=== PATIENT | female | born 1955 | race Caucasian/White ===

== ENCOUNTER 2020-05-25 06:24 | Day surgery (SDC) | payer MEDICARE, SELFPAY ==
--- NOTE | 2020-05-24 10:08 | HO.ANESPROP2 ---
Documented by User: Melanie Laurent 05/24/20 10:09 HPI - Anesthesia Eval Consult details Narrative: 64yo F for colonoscopy [facility] Past Medical History Medical History High cholesterol Surgical History Surgical History History of salpingo-oophorectomy Hx of colonoscopy Social History Social History Smoking Status: Former smoker Years Smoked: no Smoking Quit Date: 30 years ago Patient Interested in Nicotine Replacement: No Patient Given Instructions on How to Stop Smoking: No Second Hand Smoke Exposure: No Use of substances other than those prescribed or required for medical reasons: No Advance Directives: No Advance Directives Information Provided: No Meds Allergies Allergy/AdvReac Type Severity Reaction Status Date / Time No Known Allergies Allergy Verified 05/24/20 10:09 Home Medications Medication Instructions Recorded Confirmed Type atorvastatin 40 mg PO DAILY 05/21/20 05/21/20 History calcium carbonate-vitamin D3 1 tab PO DAILY 05/21/20 05/21/20 History [Calcium 600 + D(3)] multivitamin 1 tab PO DAILY 05/21/20 05/21/20 History Exam Exam Date and Time: May 24, 2020 1008 Assessment and Plan Assessment Anesthesia Assessment: Chart Reviewed Documented by User: Ami Doshi 05/25/20 07:27 [facility] Past Medical History Medical History High cholesterol Surgical History Surgical History History of salpingo-oophorectomy Hx of colonoscopy Social History Social History Smoking Status: Former smoker Years Smoked: no Smoking Quit Date: 30 years ago Patient Interested in Nicotine Replacement: No Patient Given Instructions on How to Stop Smoking: No Second Hand Smoke Exposure: No Use of substances other than those prescribed or required for medical reasons: No Advance Directives: No Advance Directives Information Provided: No Meds Allergies Allergy/AdvReac Type Severity Reaction Status Date / Time No Known Allergies Allergy Verified 05/24/20 10:09 Home Medications Medication Instructions Recorded Confirmed Type atorvastatin 40 mg PO DAILY 05/21/20 05/21/20 History calcium carbonate-vitamin D3 1 tab PO DAILY 05/21/20 05/21/20 History [Calcium 600 + D(3)] multivitamin 1 tab PO DAILY 05/21/20 05/21/20 History Exam Airway Mallampati Class: II TM Dist: >3cm Neck ROM: Full
[2020-05-25] MEDS: Lactated Ringers 1,000 ML 100 ML IVCONT (06:53)
[2020-05-25 06:57] VITALS: BMI 27.4
[2020-05-25 07:00] VITALS: BP 133/76; PULSE 70; RESP 16; TEMP 36.6; O2SAT 98
--- NOTE | 2020-05-25 07:26 | MHC.SHP ---
Pre-Procedural Eval Section B Chief Complaint: Screening Details of Present Illness: screening see H&P no changes Relevant Family History (Specify if Yes): Yes Relevant Social History: None Present Medications: see Short Stay Collaborative assessment Medical History: No relevant PMH History of Previous Operations: No relevant previous surgery Allergies: Allergies Allergy/AdvReac Type Severity Reaction Status Date / Time No Known Allergies Allergy Verified 05/24/20 10:09 Review of Systems Sugical H&P ROS: Negative: Constitution, Cardiovascular, Respiratory, Neurological, Psychiatric, Hem-Onc, Allergic/Immunologic, Gastrointestinal, Genitourinary, Musculoskeletal, Integumentary, Endocrine and Eyes/Ears/Nose/Throat Exam Surgical H&P Exam: Normal: HEENT, Normal: Heart, Normal: Lungs, Normal: Extremities, Normal: Abdomen, Normal: Skin and Normal: Neurological Plan Diagnosis/Plan: Unchanged Patient has been examined and remains a candidate for the planned procedure
--- NOTE | 2020-05-25 07:58 | PM.OP ---
Brief Operative Note Date of procedure: 05/25/20 Pre-op diagnosis: screening Post-op diagnosis: other (colon polyp) Procedure: colonoscopy Surgeon: Michael Watters Anesthesia: MAC Estimated blood loss (mL): 1 Pathology: other (polyp 65 cm) Condition: stable Disposition: PACU
[2020-05-25 08:00] VITALS: BP 112/73; PULSE 80; RESP 15; TEMP 36.7; O2SAT 96
[2020-05-25 08:15] VITALS: BP 131/57; PULSE 71; RESP 20; TEMP 36.7; O2SAT 97
--- NOTE | 2020-05-25 08:25 | HO.POSTANES ---
Post Anesthesia Evaluation Post Anesthesia Evaluation Vital Signs: Vital Signs Temp Pulse Resp BP Pulse Ox 05/25/20 08:15 98.0 F 71 20 131/57 L 97 05/25/20 08:00 98.0 F 80 15 112/73 96 05/25/20 07:00 97.9 F 70 16 133/76 98 Anesthesia: Monitored Mental Status: Awake Pain Control: Satisfactory Nausea/Vomiting: None Hydration: Adequate Anesthesia-Related Issues: No Anes. Related Issues
--- NOTE | 2020-05-25 08:34 | OP_ITS ---
SURGEON: Michael Watters MD INDICATIONS: Colon cancer screening and family history of colon cancer. PREOPERATIVE DIAGNOSIS: POSTOPERATIVE DIAGNOSIS: PROCEDURE PERFORMED: Colonoscopy to the terminal ileum with biopsy. ESTIMATED BLOOD LOSS: COMPLICATIONS: ANESTHESIA: ASSISTANTS: SPECIMENS: MEDICATIONS: Monitored anesthesia care. DESCRIPTION OF PROCEDURE: History and physical performed. The risks and benefits of the procedure were explained to the patient. Informed consent was obtained. The patient was placed in the left lateral decubitus position. A digital rectal exam was performed and was found to be normal. The Olympus pediatric video colonoscope was introduced into the rectum and advanced to the cecum without difficulty. The cecum was identified by transillumination, palpation, and identification of ileocecal valve. Examination was performed and the scope was removed. She tolerated the procedure well and was taken to recovery area in stable condition. FINDINGS: The terminal ileum was normal. The visualized colonic mucosa was normal. The quality of the prep was good. There was a single polyp removed with biopsy forceps located at 65 cm. This measured less than 5 mm. No other polyps were identified. The sigmoid was somewhat tortuous. Retroflexed examination showed small internal hemorrhoids. IMPRESSION: Colon polyp. RECOMMENDATION: Follow up the biopsy results. MD JOHNSON Levy/DAYSI / [id number]
== END 2020-05-25 08:48 | disposition home or self-care (01) ==
PROVIDERS: Visit Provider Internal Medicine Gastroenterology
PROC: 0DJD8ZZ Inspection of Lower Intestinal Tract, Via Natural or Artificial Opening Endoscopic (ICD-10-PCS; CPT 45378; principal; 2020-05-25 07:30)
DX: Z12.11 Encounter for screening for malignant neoplasm of colon (principal); Z80.0 Family history of malignant neoplasm of digestive organs; D12.4 Benign neoplasm of descending colon; K64.8 Other hemorrhoids; E78.00 Pure hypercholesterolemia, unspecified; Z79.899 Other long term (current) drug therapy; Z87.891 Personal history of nicotine dependence
CPT/HCPCS: 45380; 88305